=== PATIENT | male | born 1955 | race Caucasian/White ===

== ENCOUNTER 2022-12-02 15:43 | Outpatient (CLI) | payer MEDICARE, SELFPAY ==
--- NOTE | 2022-12-02 16:00 | CRLHL7_ITS ---
For Patients: As a result of the Cures Act, medical imaging exams and procedure reports are released immediately into your electronic medical record. You may view this report before your referring provider. If you have questions, please contact your health care provider. INDICATION: History of chronic sinusitis. TECHNIQUE: High-resolution CT images including the paranasal sinuses with multiplanar reconstructions. FINDINGS: Maxillary: There are postoperative changes with patent bilateral maxillary antrostomies uncinatectomies and partial ethmoidectomies. The antrostomies are widely patent. 2 mm or less mucosal thickening at the base of the bilateral maxillary sinuses which are otherwise clear. There are no air-fluid levels. Ethmoid: Partial bilateral ethmoidectomies. There is opacification of few left anterior ethmoid air cells no air-fluid levels. Frontal: Frontal air cells are hypoplastic there is mucosal thickening and a small left frontal air cell and inferior frontal recess. Sphenoid: The sphenoid air cells are clear the sphenoid ethmoidal recesses are patent bilaterally. Nasal fossa: There is mild convex right curvature of the bony nasal septum the posterior nasal fossa in the nasopharynx are unremarkable. Wide [id number] images show grossly normal intracranial findings. IMPRESSION: 1. Mature postoperative changes involving the sinonasal cavities. 2. Widely patent bilateral maxillary antrostomies and uncinectomies. 3. Mucosal thickening in the left anterior ethmoid air cells and hypoplastic left frontal sinus inferior recess. Sphenoid sinus clear. 4. Mild nasal septal curve. Please note that all CT scans at this facility use dose modulation, iterative reconstruction, and/or weight-based dosing when appropriate to reduce radiation dose to as low as reasonably achievable. Dictated by Stefan Way MD @ 12/03/2022 9:01:03 AM (Electronically Signed)
== END 2022-12-02 15:44 | disposition home or self-care (01) ==
LOC: CT 15:44
PROVIDERS: PCP Family Medicine; Visit Provider Otolaryngology
DX: J32.9 Chronic sinusitis, unspecified (principal); J34.2 Deviated nasal septum
CPT/HCPCS: 70486

== ENCOUNTER 2023-10-21 08:49 | Outpatient (CLI) | payer MEDICARE, SELFPAY | END 2023-10-21 08:50 | disposition home or self-care (01) | PROVIDERS: PCP Family Medicine; Visit Provider Family Medicine | DX: Z01.818 Encounter for other preprocedural examination (principal); Z13.6 Encounter for screening for cardiovascular disorders; Z12.5 Encounter for screening for malignant neoplasm of prostate | CPT/HCPCS: 80048; 80061; 85025; G0103 ==

== ENCOUNTER 2023-10-27 07:12 | Outpatient (CLI) | payer MEDICARE, SELFPAY ==
--- OUTSIDE RECORDS SUMMARY | 2023-10-27 07:13 | XMS_ITS | Clinical Summary ---
Author Organization [facility] Address [place], [place] [address] Care Team Providers Care Ferryboat Helper Name Role Phone Pcp, No Primary Care Provider Unavailabl e Allergies No known active allergies Medications No known medications Immunizations Name Administration Dates Next Due COVID-19 vaccine ([employer] 30mcg/0.3mL) DENNIS Merino 12/25/2020 Influenza Virus, Unspecified 02/06/2020 Tdap 07/07/2012 Zoster (Zostavax-ZVL, live) 03/08/2016 Social History Tobacco Use Types Packs/Day Years Used Date Smoking Tobacco: Never Smokeless Tobacco: Never Tobacco Cessation:Counseling Given: Yes Sex and Gender Information Value Date Recorded Sex Assigned at Not on file Gender Identity Not on file Sexual Orientation Not on file Obstetrics History Last Filed Vital Signs Vital Sign Reading Time Taken Comments Blood Pressure 123/79 12/27/2020 9:11 AM CDT tow er Pulse 67 03/04/2023 3:55 PM MEDICATION NURSE Temperature - - Respiratory Rate - - Oxygen Saturation 98% 03/04/2023 3:55 PM MEDICATION NURSE Inhaled Oxygen Concentration - - Weight 75.7 kg (166 lb 12.8 oz) 03/04/2023 3:55 PM MEDICATION NURSE Height - - Body Mass Index - - Plan of Treatment Health Maintenance Due Date Last Done Comments Depression screening for age 12+ 1967 BMI (ht and wt on same day) for age 18+ 07/16/1973 Hepatitis C screening for age 18-79 07/16/1973 Colonoscopy through age 75 07/16/2000 Lipids for age 45-75 07/16/2000 Zoster (shingles) series for age 50+ (2 of 3) 05/03/2016 03/08/2016 Medicare Wellness for age 65+ 07/16/2020 Pneumococcal series for age 65+ (1 of 1 - PCV) 07/16/2020 Tetanus booster 07/07/2022 07/07/2012 COVID-19 vaccine series ( season) 2023 01/17/2023, 12/11/2021, 12/25/2020 Influenza for age 65+ 11/16/2023 02/06/2020 Tdap Completed 07/07/2012 Care Teams Ferryboat Helper Relationship Specialty Start Date End Date Pcp, No . PCP - General 12/14/20
--- OUTSIDE RECORDS SUMMARY | 2023-10-27 07:14 | XMS_ITS | Referral Summary ---
Author Organization [facility] Address [address] [place] [address]. [place] [address] Care Team Providers Care Sorority Mother Name Role Phone Nirmal Sim PA-C Primary Care Provider Allergies No known active allergies Medications Medication Sig Dispensed Refills Start Date End Date Status Fexofenadine HCl (SHELL PO) Active HYDROcodone-acetami nophen (NORCO) 5-325 MG tabletIndications:C hronic maxillary sinusitis,Sinus pressure,Nasal obstruction,Nasal septal deviation,Nasal turbinate hypertrophy Take 1-2 tablets by mouth every 6 hours as needed for moderate to severe pain 16 tablet 05/10/2019 Active Additional Information Patient not taking.Reported on 06/04/2019 Active Problems Problem Noted Date Diagnosed Date Chronic maxillary sinusitis 04/12/2019 Overview: Added automatically from request for surgery [id number] Sinus pressure 04/12/2019 Overview: Added automatically from request for surgery [id number] Nasal obstruction 04/09/2019 Overview: Added automatically from request for surgery [id number] Nasal septal deviation 04/09/2019 Overview: Added automatically from request for surgery [id number] Nasal turbinate hypertrophy 04/09/2019 Overview: Added automatically from request for surgery [id number] Unilateral inguinal hernia w ithout obstruction or gangrene, recurrence not specified 08/05/2018 Chronic rhinitis 06/22/2014 ANDREW (obstructive sleep apnea)- mild (AHI 9) 10/2014 Overview: Study Date: 06/19/2014- (186.0 lbs) Lowest oxygen saturation was 84.4%. Apnea/Hypopnea Index was 9.2 events per hour. The REM AHI is 12.1. The supine AHI is 32.1. The RERA index was 2.4 per hour. The RDI was 11.6. PLM index was 14.8 per hour CARDIOVASCULAR SCREENING; LDL GOAL LESS THAN 160 01/14/2010 Resolved Problems Problem Noted Date Diagnosed Date Resolved Date Left knee pain 11/25/2017 12/14/2018 Advanced directives, counseling/discussion 08/13/2017 09/01/2023 Overview: Patient states has Advance Directive and will bring in a copy to clinic. Sunshine Montano LPN Acute left-sided low back pa in with left-sided sciatica 06/15/2016 08/14/2016 Immunizations Name Administration Dates Next Due Influenza Vaccine >6 months,quad, PF 01/13/2013 Influenza Vaccine, 6+MO IM ( QUADRIVALENT W/PRESERVATIVES) 02/06/2020 TDAP Vaccine (Adacel) 07/07/2012 Zoster recombinant adjuvanted (SHINGRIX) 019,01/29/2018 Zoster vaccine, live 03/08/2016 Social History Tobacco Use Types Packs/Day Years Used Date Smoking Tobacco: Never Smokeless Tobacco: Never Tobacco Cessation:Counseling Given: Yes Alcohol Use Standard Drinks/Week Comments Yes 0 (1 standard drink = 0.6 oz pur e alcohol) a beer every other day PHQ-2 Answer Date Recorded PHQ-2 Score 0 04/27/2019 Sex and Gender Information Value Date Recorded Sex Assigned at Not on file Gender Identity Not on file Sexual Orientation Not on file Last Filed Vital Signs Vital Sign Reading Time Taken Comments Blood Pressure 136/82 06/04/2019 1:13 PM CDT Pulse 77 06/04/2019 1:13 PM CDT Temperature 36.2 ??C (97.2 ??F) 06/04/2019 1:13 PM CD T Respiratory Rate 16 05/18/2019 1:31 PM 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
--- OUTSIDE RECORDS SUMMARY | 2023-10-27 07:14 | XMS_ITS | Clinical Summary ---
Author Organization [facility] Address [address] [place] [address]. [place] [address] Care Team Providers Care [employer] Name Role Phone Nirmal Sim PA-C Primary [...] Overview: Added automatically from request for surgery [id number] Sinus pressure 04/12/2019 Overview: Added automatically from request for surgery [id number] Nasal obstruction 04/09/2019 Overview: Added automatically from request for surgery [id number] Nasal septal deviation 04/09/2019 Overview: Added automatically from request for surgery [id number] Nasal turbinate hypertrophy 04/09/2019 Overview: Added automatically from request for surgery [id number] Unilateral inguinal hernia w ithout obstruction or [...] adjuvanted (SHINGRIX) 019,01/29/2018 Zoster vaccine, live 03/08/2016 Family History Medical History Relation Comments Alzheimer Disease Maternal Grandmother Arthritis Mother Relation Status Comments Brother 1 Alive Brother 2 Alive Daughter Alive Maternal Grandfather Maternal Grandmother Mother Alive Paternal Grandfather Paternal Grandmother Son 1 Alive Son 2 Alive Social History Tobacco Use Types Packs/Day Years [...] T Respiratory Rate 16 05/18/2019 1:31 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
--- OUTSIDE RECORDS SUMMARY | 2023-10-27 07:14 | XMS_ITS | Encounter Summary ---
Author Organization [facility] Address [address] [place] [address]. [place] [address] Care Team Providers Care Ferris Wheel Attendant Name Role Phone OpNirmal hensley PA-C Primary Care Provider OpNirmal hensley PA-C Unavailable [phone] Eduardo Ennis MD Unavailable [phone] Reason for Visit * Reason Onset Date Comments Forms 05/27/2019 Encounter Details Date Type Department Care Team (Late st Contact Info) Description 05/27/2019 Telephone [facility] [address] [place] [address] Eduardo Ennis MD [address] [place] [address] Forms Social History Tobacco Use Types Packs/Day Years Used Date Smoking Tobacco: Never Smokeless Tobacco: Never Alcohol Use Standard Drinks/Week Comments Yes 0 (1 standard drink = 0.6 oz pur e alcohol) a beer every other day PHQ-2 Answer Date Recorded PHQ-2 Score 0 04/27/2019 Sex and Gender Information Value Date Recorded Sex Assigned at Not on file Gender Identity Not on file Sexual Orientation Not on file documented as of this encounter Miscellaneous Notes * Telephone Encounter - Clifton Olivera - 05/28/2019 10:40 AM CDT Pt picked up note 3/13 * Telephone Encounter - Vannessa Horner - 05/28/2019 8:00 AM CDT Patient states the date to return to work is the 06/09/2019. Please call to advise. * Telephone Encounter - Liya Castro - 05/27/2019 2:49 PM CDT Reason for Call: Form, our goal is to have forms completed with 72 hours, however, some forms may require a visit or additional information. Type of letter, form or note: work Who is the form from?: Patient Where did the form come from: Patient or family brought in What clinic location was the form placed at?: [facility] Where the form was placed: [facility] What number is listed as a contact on the form?: [phone] Additional comments: I told him we would call and let him know when it was ready. Pt aware of our standard process of 7 - 10 business days. Call taken on 05/27/2019 at 2:49 PM by Liya Castro * Telephone Encounter - Laurie Qiu RN - 05/27/2019 2:26 PM CDTSummary: signature Returned call to pt. I told him if he drops off the form today in [place] Dr Raymon is in [place] tomorrow and will sign it. He verbalized understanding. He will bring to front clerk in [place] so they can place in [facility]. Laurie Qiu RN Specialty Triage 05/27/2019 2:28 PM * Telephone Encounter - Vannessa Horner - 05/27/2019 2:07 PM CDT p Reason for call: Other Patient called regarding (reason for call): form Additional comments: Patient calling needing a form filled out stating he can go back to work aftergetting a splint taken out. Wants to know if he could just stop by and have it signed. Please call to advise. Phone number to reach patient: Home number on file [phone] (home) Best Time: Any Can we leave a detailed message on this number? YES Travel screening: Not Applicable documented in this encounter Plan of Treatment Not on file documented as of this encounter Visit Diagnoses Not on filedocumented in this encounter Care Teams Ferris Wheel Attendant Relationship Specialty Start Date End Date OpkemlNirmal PA-C [id number] [address] PCP - General Family Practice 04/28/14 OpNirmal hensley PA-C [address] [address] Assigned PCP 08/17/17 03/01/22 Eduardo Ennis MD [address] [facility] [place] [address] Assigned Surgical Provider 01/07/20 12/09/20 documented as of this encounter
--- NOTE | 2023-10-27 08:45 | W.ANESCHARGE ---
Anesthesia Charges Start Date/Time Anesthesia Start Date: 10/27/23 Anesthesia Start Time: 08:10 Stop Date/Time Anesthesia Stop Date: 10/27/23 Anesthesia Stop Time: 08:44
--- NOTE | 2023-10-27 09:00 | W.ANESCHARGE ---
Anesthesia Charges Start Date/Time Anesthesia Start Date: 10/27/23 Anesthesia Start Time: 08:10 Stop Date/Time Anesthesia Stop Date: 10/27/23 Anesthesia Stop Time: 08:44
== END 2023-10-27 07:13 | disposition home or self-care (01) ==
LOC: OP CLINIC 07:12
PROVIDERS: PCP Family Medicine; Visit Provider Surgery
DX: Z12.11 Encounter for screening for malignant neoplasm of colon (principal); K63.5 Polyp of colon
CPT/HCPCS: 00811; 45385; 88305; J2704

== ENCOUNTER 2024-09-21 13:52 | Outpatient (CLI) | payer MEDICARE, SELFPAY | END 2024-09-21 13:53 | disposition home or self-care (01) | PROVIDERS: PCP Family Medicine; Visit Provider Family Medicine | DX: R63.4 Abnormal weight loss (principal); R53.83 Other fatigue | CPT/HCPCS: 80048; 84443; 84460; 85025 ==